=== PATIENT | male | born 1960 | race Caucasian/White ===

== ENCOUNTER 2016-10-26 17:04 | Emergency (ER) | payer BC, OTHER ==
[~2016-10-26] VITALS: Ht 180.3 cm; Wt 80.7 kg
[~2016-10-26 17:04] MED LIST: OXYC5TAB PO; atripla PO
[2016-10-26 17:08] VITALS: BP 130/83; PULSE 78; TEMP 36.5; O2SAT 98; Ht 180.3 cm; Wt 80.7 kg
[2016-10-26] MEDS ORDERED: GELATIN SPONGE 12-7MM ONE (17:20)
[2016-10-26] MEDS ORDERED: ZCR10 PO (17:26)
[2016-10-26] MEDS ORDERED: EFAVTAB PO (17:26)
[2016-10-26] MEDS ORDERED: GELATIN SPONGE 12-7MM EXT ONE (17:30)
--- NOTE | 2016-10-26 17:32 | EMERGENCY ROOM VISIT NOTE ---
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 The patient was trying to grab a dog that was loose and ran into a stranger's house when the dog bit his right hand. The patient states it is just a puncture wound. The patient's tetanus is up-to-date. The dog is currently at the piano instructor's office. The dog's vaccines are unknown at this time. They're going to try and quarantine the dog. REVIEW OF SYSTEMS: 6 system review was performed and was negative unless stated otherwise in history of present illness. PMH: The patient is healthy; HIV-positive SOCIAL HISTORY: Patient admits to tobacco use but denies any alcohol use PHYSICAL EXAM: Vital Signs: Were reviewed Reviewed Nurse's notes. GEN.: 56-year -old white male appears in no acute distress. MENTAL STATUS: Alert and oriented 3. RIGHT HAND: There is a small puncture wound on the proximal phalanx of the thumb and on the distal phalanx of the fourth finger. There is mild active bleeding of the puncture wound on the thumb. The wounds look clean. The patient is able to move all digits without difficulty. EMERGENCY DEPARTMENT COURSE: The patient was evaluated. Animal bite form was completed. All wounds were thoroughly cleansed. Gelfoam was applied to the thumb wound. Antibiotics ointment and bandage were applied. The patient will be placed on Augmentin. The patient was discharged home in stable condition. DIAGNOSIS: Puncture wound of the right hand secondary to dog bite DISCHARGE INSTRUCTIONS: Observe the area closely for signs of infection such as redness, swelling, increasing pain, or drainage. If any should occur, return to the ER. Take Augmentin as prescribed. If you find out that you need the rabies vaccine series please return to the ER as soon as possible. Problem List Medical Problems: (1) HIV (human immunodeficiency virus infection) Status: Chronic Current/Historical Medications Scheduled Kvmagpvrs-Zwwhnsbobwcrs-Obojvv (Atripla), 600 MG PO DAILY Simvastatin (Simvastatin), 10 MG PO QAM Allergies Coded Allergies: No Known Allergies (Verified , 10/26/16) Vital Signs Date Time Temp Pulse Resp B/P Pulse Ox O2 Delivery O2 Flow Rate FiO2 10/26/16 17:08 36.5 78 18 130/83 98 Room Air Departure Information Referrals Yan Munguia D.O. (PCP) Patient Instructions Formerly [facility], 1928–1983
[2016-10-26] MEDS ORDERED: AMOX875T PO (17:34)
[2016-10-26] MEDS ORDERED: AMOXICILLIN/CLAVULANATE TAB 875 MG TAB PO STA (17:40)
== END 2016-10-26 17:56 | disposition home or self-care (01) ==
LOC: C.EDB 17:05 → C.EDD 17:56
DX: S61.431A Puncture wound without foreign body of right hand, initial encounter (principal); W54.0XXA Bitten by dog, initial encounter; B20 Human immunodeficiency virus [HIV] disease; F17.200 Nicotine dependence, unspecified, uncomplicated

== ENCOUNTER → 2017-09-05 | Outpatient (CLI) | payer BC ==
[~2017-09-05] MED LIST changes: +EFAVTAB PO; -OXYC5TAB PO; +ZCR10 PO; -atripla PO
--- NOTE | 2017-09-05 08:44 | DIAGNOSTIC IMAGING REPORT ---
CHEST 2 VIEWS ROUTINE HISTORY: 57 years-old Male R05 [id number] acute cough with asthma COMPARISON: Chest CT 09/13/2015, chest radiograph 09/06/2015 TECHNIQUE: PA and lateral views of the chest FINDINGS: Cardiac silhouette is within normal limits. There is mild biapical pleural-parenchymal scarring redemonstrated. Mild emphysematous changes with mild hyperinflation with round subpleural lucencies seen at the lung apices. No pneumothorax, pleural effusion, focal airspace consolidation or overt pulmonary edema. Bones of the chest appear grossly intact. Multilevel endplate spurring of the spine. IMPRESSION: Mild emphysematous changes are again seen without acute cardiopulmonary process. The above report was generated using voice recognition software. It may contain grammatical, syntax or spelling errors. Electronically signed by: Xavi Aden M.D. 09/05/2017 8:43 AM Dictated Date/Time: 09/05/2017 8:40 AM
== END | disposition home or self-care (01) ==
LOC: C.RAD1850 08:22
PROVIDERS: ATTEND Physician Assistant
DX: R05 Cough (principal); J45.909 Unspecified asthma, uncomplicated